=== PATIENT | male | born 1965 | race Caucasian/White ===

== ENCOUNTER → 2017-01-29 | Outpatient (CLI) | payer OTHER ==
--- NOTE | 2017-01-29 17:14 | PCVCIMAG ---
APPROVED REPORT Exam: Nuclear Stress Test Indication: Chest pain Patient Location: Out-Patient Stress Nurse: Siria Cisse RN CO Tech:MaryMARII Bates Ht: 6 ft 2 in Wt: 286 lbs BSA: 2.53 m2 HR: 68 bpm BP: 120/84 mmHg BMI: 36.7 Rhythm: NSR Medical History Medical History: HTN,Age Medications: Bystolic (last dose 18 hours) Diovan Allergies: No known drug allergies Pretest Chest Pain Characteristics: No chest pain Exercise History: Physically active NM EXAM: Myocardial Perfusion REST/STRESS Imaging Protocol: Rest Tc-99m/Stress Tc-99m 1 day Resting Data Rest SPECT myocardial perfusion imaging was performed in supine position 45 minutes following the intravenous injection of 13.7 mCi of Tc-99m Sestamibi. Time of rest injection: 1420 Date: 01/29/2017 Administration Route: IV Administration Site: Right AC Pharmacologic Stress Time of stress injection: Exercise Stress At peak stress, the patient was injected intravenously with 40.8mCi of Tc-99m Sestamibi. Time of stress injection: 1540 Date: 01/29/2017 Administration Route: IV Administration Site: Right AC Gated Stress SPECT was performed 45 minutes after stress injection. The images were gated to evaluate regional wall motion and calculate left ventricular ejection fraction. Study Data Post stress, the left ventricular ejection was 61%.. SSS: 0 SRS: 0 SDS: 0 TID = 0.79. Perfusion There is a medium area of moderately reduced uptake in the basal and mid segment of the inferolateral wall which is seen on the stress images and improves on the resting images. This area thickens and moves normally and is most consistent with attenuation artifact. Wall Motion Normal left ventricular wall motion. Nuclear Conclusion 1. INTERMEDIATE RISK STUDY Interpreted by: Rita Chowdhury MD Electronically Approved: 01/29/2017 17:12:36 Stress Test Details Stress Test: Exercise stress testing was performed using a Goyo protocol. HR Resting HR: 68 bpmMax Heart Rate (APMHR): 171 bpm Max HR Achieved: 162 bpmTarget HR (85% APMHR): 145 bpm % of APMHR: 94 Recovery HR: 93 bpm HR response to stress: Normal HR response to stress BP Resting BP: 120/84 mmHg Max BP: 193/90 mmHg BP response to stress: Normal blood pressure response to stress. ECG Resting ECG: Sinus Rhythm Stress ECG: Sinus Rhythm, STT changes inferior leads ST Change: Downsloping ST depression Maximum ST Deviation: 2.1 mm Recovery ECG: Sinus Rhythm Clinical Reason for Termination: Dyspnea, Fatigue Stress Symptoms: Dyspnea Exercise duration: 9 min 30 sec Exercise capacity: 11.6 METs Overall Exercise Capacity for Age: Average Scale: Active Angina Score: None Symptoms resolved during recovery. Stress ECG Conclusion 1. SUBJECTIVELY ABNORMAL WITH DEVELOPMENT OF EXERSIONAL DYSPNEA 2. ELECTROCARDIOGRAPHICALLY NEGATIVE FOR ISCHEMIA 3. AVERAGE FUNCTIONAL CAPACITY Moran Treadmill Score is -1.5 which is Moderate risk. <Conclusion> 1. SUBJECTIVELY ABNORMAL WITH DEVELOPMENT OF EXERSIONAL DYSPNEA 2. ELECTROCARDIOGRAPHICALLY NEGATIVE FOR ISCHEMIA 3. AVERAGE FUNCTIONAL CAPACITY
== END | disposition home or self-care (01) ==
LOC: PCVCIMAG 14:26
PROVIDERS: ATTEND Internal Medicine
DX: I10 Essential (primary) hypertension (principal); J30.1 Allergic rhinitis due to pollen; K21.0 Gastro-esophageal reflux disease with esophagitis; Z98.52 Vasectomy status
CPT/HCPCS: 78452; 93017; A9500